=== PATIENT | female | born 2000 | race African-American/Black ===

== ENCOUNTER 2019-10-31 20:08 | Emergency (ER) | payer OTHER ==
[~2019-10-31] VITALS: Ht 147.3 cm; Wt 54.0 kg
[2019-10-31] MEDS ORDERED: PROAIR HFA8.5 GM INH (20:19)
[2019-10-31 20:39] LABS: URINE BILIRUBIN NEGATIVE (Negative); URINE BLOOD NEGATIVE (Negative); URINE CLARITY CLEAR; URINE COLOR YELLOW; URINE GLUCOSE-RANDOM* NEGATIVE (Negative); URINE KETONES 1+ (Negative); URINE LEUKOCYTES-REFLEX NEGATIVE (Negative); URINE NITRITE-REFLEX NEGATIVE (Negative); URINE PROTEIN (DIPSTICK) NEGATIVE (Negative); URINE UROBILINOGEN 0.2 E.U./dl (0.2-1.0)
[2019-10-31 21:17] LABS: ABSOLUTE NEUTROPHILS 4.3 thou/uL (1.4-8.2); BASOPHILS 0.4 % (0.0-2.0); EOSINOPHILS 5.4 % (0.0-3.0); HEMOGLOBIN 13.9 gm/dL (12.0-15.0); LYMPHOCYTES 26.8 % (24.0-44.0); MCH 29.1 pg (26.0-34.0); MCHC 33.1 g/dL (28.0-37.0); MONOCYTES 8.3 % (1.0-8.0); PLATELET COUNT 183 thou/uL (150-400); POLYS 59.1 % (36.0-66.0); RBC 4.77 mil/uL (4.20-5.00); RDW 13.9 % (10.5-14.5); WBC 7.3 thou/uL (4.0-11.0)
[2019-10-31 21:20] LABS: CALCIUM 9.4 mg/dL (8.5-10.1); CREATININE 0.7 mg/dL (0.6-1.0); POTASSIUM 3.3 mmol/L (3.5-5.1)
[2019-10-31 21:21] LABS: MAGNESIUM 1.8 mg/dL (1.8-2.4)
[2019-10-31] MEDS ORDERED: PYRIDOXINE HCL25 MG PO (23:04)
[2019-10-31 23:25] VITALS: BP 154/79
== END 2019-10-31 23:26 | disposition home or self-care (01) ==
LOC: ER 20:08
PROVIDERS: Emergency Medicine
DX: O26.891 Other specified pregnancy related conditions, first trimester (principal); R10.9 Unspecified abdominal pain; M54.5 Low back pain; Z88.1 Allergy status to other antibiotic agents; Z3A.01 Less than 8 weeks gestation of pregnancy

== ENCOUNTER 2019-11-28 17:37 | Emergency (ER) | payer OTHER ==
[~2019-11-28] VITALS: Ht 149.9 cm; Wt 52.6 kg
[~2019-11-28 17:37] MED LIST: PROAIR HFA8.5 GM INH; PYRIDOXINE HCL25 MG PO
[2019-11-28] MEDS ORDERED: BUTALB-APAP-CA1 EACH PO (20:41)
[2019-11-28 20:52] VITALS: BP 116/70
== END 2019-11-28 20:55 | disposition home or self-care (01) ==
LOC: ER 17:37
DX: O99.351 Diseases of the nervous system complicating pregnancy, first trimester (principal); G43.909 Migraine, unspecified, not intractable, without status migrainosus; O99.511 Diseases of the respiratory system complicating pregnancy, first trimester; J45.909 Unspecified asthma, uncomplicated; Z3A.09 9 weeks gestation of pregnancy; Z79.899 Other long term (current) drug therapy; Z88.1 Allergy status to other antibiotic agents

== ENCOUNTER 2019-12-14 02:22 | Emergency (ER) | payer OTHER ==
[~2019-12-14] VITALS: Ht 147.3 cm; Wt 52.2 kg
[~2019-12-14 02:22] MED LIST changes: +BUTALB-APAP-CA1 EACH PO
[2019-12-14] MEDS ORDERED: REGLAN 5 MG TAB5 MG PO (05:09)
[2019-12-14 05:37] VITALS: BP 137/92
== END 2019-12-14 05:56 | disposition home or self-care (01) ==
LOC: ER 02:22
DX: O26.891 Other specified pregnancy related conditions, first trimester (principal); G43.909 Migraine, unspecified, not intractable, without status migrainosus; O21.8 Other vomiting complicating pregnancy; O99.511 Diseases of the respiratory system complicating pregnancy, first trimester; J45.909 Unspecified asthma, uncomplicated; Z79.899 Other long term (current) drug therapy; Z88.8 Allergy status to other drugs, medicaments and biological substances; Z3A.11 11 weeks gestation of pregnancy

== ENCOUNTER 2020-12-17 17:50 | Emergency (ER) | payer OTHER ==
[~2020-12-17] VITALS: Ht 147.3 cm; Wt 52.2 kg
[~2020-12-17 17:50] MED LIST changes: +REGLAN 5 MG TAB5 MG PO
[2020-12-17 18:20] LABS: ABSOLUTE NEUTROPHILS 7.4 thou/uL (1.4-8.2); BASOPHILS 0.4 % (0.0-2.0); HEMATOCRIT 39.2 % (37.0-47.0); HEMOGLOBIN 12.4 gm/dL (12.0-15.0); LYMPHOCYTES 22.5 % (24.0-44.0); MCH 25.6 pg (26.0-34.0); MCHC 31.5 g/dL (28.0-37.0); MCV 81.3 fL (80.0-100.0); MONOCYTES 6.8 % (1.0-8.0); PLATELET COUNT 188 thou/uL (150-400); POLYS 65.3 % (36.0-66.0); RBC 4.82 mil/uL (4.20-5.00); RDW 17.1 % (10.5-14.5); WBC 11.3 thou/uL (4.0-11.0)
[2020-12-17 18:35] LABS: URINE BILIRUBIN NEGATIVE (Negative); URINE BLOOD NEGATIVE (Negative); URINE CLARITY CLEAR; URINE COLOR YELLOW; URINE GLUCOSE-RANDOM* NEGATIVE (Negative); URINE KETONES NEGATIVE (Negative); URINE LEUKOCYTES-REFLEX NEGATIVE (Negative); URINE NITRITE-REFLEX NEGATIVE (Negative); URINE PROTEIN (DIPSTICK) 1+ (Negative)
[2020-12-17 18:38] LABS: CREATININE 0.8 mg/dL (0.6-1.0); POTASSIUM 4.1 mmol/L (3.5-5.1)
[2020-12-17 18:44] LABS: ALBUMIN 3.9 g/dL (3.4-5.0); TOTAL BILIRUBIN 1.3 mg/dL (0.2-1.0); TOTAL PROTEIN 7.6 g/dL (6.4-8.2)
[2020-12-17 19:10] LABS: BACTERIA-REFLEX 1-9 Few /HPF (None Seen); CASTS None Seen /LPF (None Seen); CRYSTALS None Seen /LPF (None Seen); MUCUS 0-3 Light strn/LPF (None Seen); SQUAMOUS >10 Many /LPF (0-3); URINE RBC None Seen /HPF (NONE SEEN); URINE WBC-REFLEX 0-5 Rare /HPF (0-5)
[2020-12-17 20:05] VITALS: BP 134/70
== END 2020-12-17 20:05 | disposition home or self-care (01) ==
LOC: ER 17:50
PROVIDERS: Student in an Organized Health Care Education/Training Program
DX: G43.909 Migraine, unspecified, not intractable, without status migrainosus (principal); R06.2 Wheezing; Z79.899 Other long term (current) drug therapy; Z88.1 Allergy status to other antibiotic agents

== ENCOUNTER 2021-04-27 04:46 | Emergency (ER) | payer OTHER ==
[~2021-04-27] VITALS: Ht 147.3 cm; Wt 53.3 kg
[2021-04-27 04:49] VITALS: BP 135/97
[2021-04-27] MEDS ORDERED: PROAIR HFA8.5 GM INH (05:12)
== END 2021-04-27 05:35 | disposition home or self-care (01) ==
LOC: ER 04:46
DX: J45.901 Unspecified asthma with (acute) exacerbation (principal); G43.909 Migraine, unspecified, not intractable, without status migrainosus; Z88.1 Allergy status to other antibiotic agents

== ENCOUNTER 2021-05-06 13:04 | Observation (INO) | payer OTHER ==
[~2021-05-06] VITALS: Ht 144.8 cm; Wt 50.9 kg
[2021-05-06 13:27] VITALS: BP 152/83
[2021-05-06 13:33] LABS: URINE BLOOD NEGATIVE (Negative); URINE CLARITY CLEAR; URINE COLOR YELLOW; URINE GLUCOSE-RANDOM* NEGATIVE (Negative); URINE KETONES 3+ (Negative); URINE LEUKOCYTES-REFLEX NEGATIVE (Negative); URINE NITRITE-REFLEX NEGATIVE (Negative); URINE PROTEIN (DIPSTICK) 2+ (Negative); URINE SPECIFIC GRAVITY >= 1.030 (1.005-1.035); URINE UROBILINOGEN 0.2 E.U./dl (0.2-1.0)
[2021-05-06 13:43] LABS: URINE REDUCING SUBSTANCE NEGATIVE
[2021-05-06 13:44] LABS: ICTOTEST (BILI CONFIRMATORY) Negative (Negative); URINE BILIRUBIN NEGATIVE (Negative)
[2021-05-06 13:49] LABS: SQUAMOUS 4-10 Moderate /LPF (0-3)
[2021-05-06 13:51] LABS: BACTERIA-REFLEX 1-9 Few /HPF (None Seen); CASTS None Seen /LPF (None Seen); CRYSTALS None Seen /LPF (None Seen); URINE RBC 1-2 Rare /HPF (NONE SEEN); URINE WBC-REFLEX 0-5 Rare /HPF (0-5)
[2021-05-06 14:18] LABS: ABSOLUTE NEUTROPHILS 7.2 thou/uL (1.4-8.2); BASOPHILS 0.3 % (0.0-2.0); EOSINOPHILS 2.1 % (0.0-3.0); HEMATOCRIT 42.9 % (37.0-47.0); HEMOGLOBIN 13.8 gm/dL (12.0-15.0); LYMPHOCYTES 12.2 % (24.0-44.0); MCH 27.5 pg (26.0-34.0); MCHC 32.1 g/dL (28.0-37.0); MCV 85.8 fL (80.0-100.0); MONOCYTES 7.5 % (1.0-8.0); PLATELET COUNT 204 thou/uL (150-400); POLYS 77.9 % (36.0-66.0); RDW 15.1 % (10.5-14.5); WBC 9.2 thou/uL (4.0-11.0)
[2021-05-06 14:30] LABS: CALCIUM 9.5 mg/dL (8.5-10.1); CREATININE 0.7 mg/dL (0.6-1.0); POTASSIUM 3.9 mmol/L (3.5-5.1)
[2021-05-06 14:35] LABS: ALBUMIN 4.5 g/dL (3.4-5.0); TOTAL BILIRUBIN 1.3 mg/dL (0.2-1.0); TOTAL PROTEIN 8.5 g/dL (6.4-8.2)
--- NOTE | 2021-05-06 18:00 | NUR ---
Pt arrived to room 456 from ED via cart. Pt is A &O x4. Pt is independent with cares and ADLs and is up ad marilin. Pt received medications as ordered and also received PRN medications. Pt VS stable. Pt is able to make needs known.
[2021-05-06 18:05] VITALS: BP 136/89
[2021-05-06 19:24] VITALS: BP 121/69
--- NOTE | 2021-05-07 04:57 | NUR ---
Pt. rested quietly at intervals during the night when checked on during frequent rounds. She has been medicated for c/o abdominal pain and nausea (see emar) with some relief noted.
[2021-05-07 07:01] VITALS: BP 124/62
[2021-05-07 08:09] LABS: ABSOLUTE NEUTROPHILS 3.5 thou/uL (1.4-8.2); BASOPHILS 0.2 % (0.0-2.0); EOSINOPHILS 6.7 % (0.0-3.0); HEMATOCRIT 35.7 % (37.0-47.0); LYMPHOCYTES 25.9 % (24.0-44.0); MCH 27.7 pg (26.0-34.0); MCHC 32.1 g/dL (28.0-37.0); MCV 86.3 fL (80.0-100.0); MONOCYTES 9.1 % (1.0-8.0); PLATELET COUNT 169 thou/uL (150-400); POLYS 58.1 % (36.0-66.0); RBC 4.14 mil/uL (4.20-5.00); RDW 14.9 % (10.5-14.5)
[2021-05-07 08:13] LABS: HEMOGLOBIN 11.5 gm/dL (12.0-15.0)
[2021-05-07 08:18] LABS: CALCIUM 8.2 mg/dL (8.5-10.1); CREATININE 0.7 mg/dL (0.6-1.0); MAGNESIUM 1.1 mg/dL (1.8-2.4); POTASSIUM 3.4 mmol/L (3.5-5.1)
[2021-05-07 13:08] LABS: INR 1.08; PROTIME 11.7 Seconds (10.5-12.1)
[2021-05-07 13:10] LABS: % SATURATION 20 % (20-39); IRON 72 ug/dL (50-170); TIBC 361 ug/dL (250-450)
[2021-05-07 13:44] LABS: FERRITIN 14 ng/mL (8-252)
--- NOTE | 2021-05-07 13:47 | NUR ---
PT ADMITTED RELATED TO COLITIS. CM REVIEWED CHART AND SPOKE WITH CARE TEAM. CM MET WITH PT AT BEDSIDE THIS DAY. PT INDICATED THAT SHE RESIDES IN AN APARTMENT WITH HER BOYFRIEND AND THEIR CHILD. PT INDICATED THERE ARE TWO FLIGHTS OF 12 STEPS TO ENTER AND NONE INSIDE. 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 CARE TEAM INDICATED THAT PT IS MEDICALLY STABLE TO DC HOME THIS DAY. PT INDICATED NO QUESTIONS OR CONCERNS ABOUT DC HOME THIS DAY. NO NEEDS ANTICPATED. CASE CLOSED.
[2021-05-07] MEDS ORDERED: CIPRO500 M1 PO (14:40)
[2021-05-07] MEDS ORDERED: METRONIDAZOLE500 M4 PO (14:41)
[2021-05-07] MEDS ORDERED: ZOFRAN ODT4 MG DISSOLVE (14:49)
[2021-05-07 15:15] VITALS: BP 124/62
== END 2021-05-07 17:00 | disposition home or self-care (01) ==
LOC: ER 13:04 → EROBS 16:04 → 4W 17:48
PROVIDERS: Internal Medicine; Nurse Practitioner; Physician Assistant; ADMIT Hospitalist; ATTEND Hospitalist
DX: K52.9 Noninfective gastroenteritis and colitis, unspecified (principal); Z20.822 Contact with and (suspected) exposure to COVID-19; J45.901 Unspecified asthma with (acute) exacerbation; G43.909 Migraine, unspecified, not intractable, without status migrainosus; Z79.899 Other long term (current) drug therapy